=== PATIENT | female | born 1950 | race Caucasian/White ===

== ENCOUNTER → 2021-01-23 | Outpatient (CLI) | payer OTHER ==
[~2021-01-23] MED LIST: BENAZEPRIL HCL20 MG PO; DAILY VALUE1 EACH PO; ETODOLAC ER400 MG PO; LIPITOR10 MG PO; LOW DOSE ASPIRI81 MG PO; METOPROLOL TART25 MG PO; NEURONTIN400 MG PO; STOOL SOFTNER PO; VITAMIN D PO; VORT10TA PO
[2021-01-23 13:25] LABS: BUN/CREATININE RATIO 15 (0-10)
== END ==
LOC: OPSV2 11:14
PROVIDERS: Orthopaedic Surgery
DX: Z01.812 Encounter for preprocedural laboratory examination (principal); Z96.661 Presence of right artificial ankle joint
CPT/HCPCS: 36415; 80048

== ENCOUNTER → 2021-01-27 | Day surgery (SDC) | payer OTHER ==
[~2021-01-27] VITALS: Ht 165.1 cm; Wt 98.0 kg
== END | disposition home or self-care (01) ==
LOC: OR 06:02
DX: Z47.2 Encounter for removal of internal fixation device (principal); I10 Essential (primary) hypertension; M19.90 Unspecified osteoarthritis, unspecified site; F32.9 Major depressive disorder, single episode, unspecified; E78.5 Hyperlipidemia, unspecified; G47.30 Sleep apnea, unspecified; F17.210 Nicotine dependence, cigarettes, uncomplicated; K21.9 Gastro-esophageal reflux disease without esophagitis; Z79.82 Long term (current) use of aspirin; Z79.899 Other long term (current) drug therapy
CPT/HCPCS: 73610; 76000; J0690; J1100; J2001; J2405; J2704; J3010; J7120